=== PATIENT | male | born 1980 | race Caucasian/White ===

== ENCOUNTER 2018-12-17 10:36 | Inpatient (IN) ==
[2018-12-17] MEDS: SODIUM CHLORIDE 0.9% 1000ML 1,000 ML IV SCH ×2 (11:30→20:38)
[2018-12-17 11:48] LABS: Albumin Level 3.7 gm/dl (3.4-5.0); BUN Creatinine Ratio 10.1 (10-20); Bilirubin Direct 0.1 mg/dl (0-0.2); Calcium 9.5 mg/dl (8.5-10.1); Est GFR (African American) 104.1; Est GFR (Non-African American) 89.8; Potassium 4.4 mmol/L (3.5-5.1)
[2018-12-17 11:51] LABS: Bilirubin,Total 0.6 mg/dl (0.2-1); Total Protein 7.4 gm/dl (6.4-8.2)
[2018-12-17 11:55] LABS: Basophils # (auto) 0.04 K/uL (0-0.2); Basophils % (auto) 0.5 %; Eosinophils # (auto) 0.12 K/uL (0-0.5); Eosinophils % (auto) 1.6 %; Hematocrit (blood only) 27.7 % (42-52); Hemoglobin 7.6 g/dL (14.0-18.0); Hypochromasia Present; Immature Granulocytes # (auto) 0.02 K/uL (0.00-0.02); Immature Granulocytes % (auto) 0.3 %; Lymphocytes # (auto) 1.68 K/uL (1.2-3.4); Lymphocytes % (auto) 22.7 %; Mean Corpuscular Hemoglobin 19.1 pg (25-34); Mean Corpuscular Hgb Conc 27.4 g/dL (32-36); Mean Corpuscular Volume 69.6 fL (80-100); Mean Platelet Volume 9.1 fL (7.4-10.4); Microcytosis Present; Monocytes # (auto) 0.64 K/uL (0.11-0.59); Monocytes % (auto) 8.6 %; Neutrophils % (auto) 66.3 %; Platelet Count 323 K/uL (130-400); Polychromasia 1+; RDW Coefficient of Variation 17.2 % (11.5-14.5); RDW Standard Deviation 44.3 fL (36.4-46.3); Red Blood Count 3.98 M/uL (4.7-6.1)
[2018-12-17 12:45] LABS: Partial Thromboplastin Ratio 0.8; Partial Thromboplastin Time 21.4 Seconds (21.0-31.0); Prothrombin Time 10.5 Seconds (9.0-12.0)
[2018-12-17] MEDS ORDERED: SODIUM CHLORIDE 0.9% 250 ML IV PRN (12:46)
[2018-12-17] MEDS ORDERED: RAPID SEQUENCE INDUCTION BAG ONE (13:05)
[2018-12-17] MEDS ORDERED: ACETAMINOPHEN 1,000 MG/100 ML VIAL IV STA (13:58)
[2018-12-17] MEDS ORDERED: PANTOprazole 80 MG in DEXTROSE 5% 100 ML IV ONE (14:00)
[2018-12-17] MEDS ORDERED: PANTOprazole 40 MG in DEXTROSE 5% 100 ML IV SCH (14:15)
--- NOTE | 2018-12-17 14:15 | History & Physical Report ---
Date of Service December 17, 2018 Assessment & Plan (1) GI bleed: This is a 38-year-old male with a PMH of hypertension, hyperlipidemia, mood disorder and recent kidney stone who presents with symptomatic anemia and was found to have GI bleed. -Hgb of 7.6 with MCV 69.6, + Hemoccult positive -No abdominal pain, melena or hematochezia -Consented and type and cross for 2 units PRBCs with first unit infusing now -Concern for ulcer in setting of frequent Naproxen use (4-5x/week). No history of GI bleed -Keeping NPO for now, Protonix bolus and drip, monitor H&H -Discussed with GI service who evaluated patient and scheduled for EGD this afternoon (2) Symptomatic anemia: Has been progressively symptomatic for the past 6 months, endorsing lightheadedness, visual changes, SOB and chest pain with exertion -Hgb of 7.6 today with microcytic MCV of 69.6. Retic % of 2.11. Serum iron, ferritin low. Elevated TIBC -Prescribed ferrous sulfate 2 days ago but has not yet started -Consented and type and cross for 2 units PRBCs with first unit infusing now -H&H Q6H (3) History of kidney stones: Recently diagnosed with obstructing 2mm R renal stone at [facility] in [place] -Started on Flomax -Passed stone this morning, no longer experiencing pain (4) Hypertension: Mildly elevated at 160/88. Continue losartan (5) Hyperlipidemia: Continue statin (6) Mood disorder: Continue citalopram DVT Ppx: Pharmacologic VTE contraindicated 2/2 GI bleed. Mechanical ppx not indicated 2/2 age. Early ambulation Code status: FULL PCP: Kevin Dispo: Plan to return home once medically stable. Patient seen in collaboration with Dr. Hunt. Please see addendum. History of Present Illness Chief Complaint: Lightheadedness, abnormal outpatient lab work Primary Care Provider: Adolfo Brown MD This is a 38-year-old male with a PMH of hypertension, hyperlipidemia, mood disorder and recent kidney stone who presents with abnormal lab work from PCPs office. Was evaluated at [facility] in [place] 2 days ago for right flank pain and found to have 2 mm renal calculus. Noted at the time to have a hemoglobin of 8 on the lab work as well as a low MCV. Was discharged on Flomax and ferrous sulfate for microcytic anemia and set up for PCP follow-up the following day. Clinic lab work performed yesterday showed hemoglobin of 7.1 with low ferritin and serum iron as well as high TIBC and reticulocyte % of 2.11. Was sent to ED for further evaluation. Patient endorses progressively worsening symptomatic anemia for the past 6 months. CBC from February 2018 with hemoglobin of 13.5 and normocytic MCV. Has become lightheaded with blurry vision with any type of exertion. Also endorses dyspnea when moving around. 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 History of normal stress echo in September 2018. has noted that he is looked paler for the past few weeks. No fever, chills, headache, night sweats, unintentional weight loss, cough, palpitations, nausea, abdominal pain, dysuria, diarrhea or constipation. Denies any hematemesis, melena or hematochezia. Bowel movements normal color and caliber. Denies tobacco use. Uses naproxen 4-5x/week for knee pain. Of note, patient passed kidney stone this morning. No longer experiencing flank pain. Denies hematuria. In ED, patient found to be afebrile and hemodynamically stable. No leukocytosis. Hemoglobin 7.6. MCV 69.6. Hemoccult positive. Consented and type and cross for 2 units PRBCs with first unit infusing now. Allergies Allergy/AdvReac Type Severity Reaction Status Date / Time epinephrine AdvReac Severe vomiting, Verified 12/17/18 15:03 dizzy, high heart rate lidocaine AdvReac Severe vomiting, Verified 12/17/18 15:03 dizzy, high heart rate Home Medications Home Medications Medication Instructions Recorded Confirmed Type citalopram 40 mg PO HS 12/17/18 12/17/18 History ferrous sulfate 325 mg PO DAILY 12/17/18 12/17/18 History losartan 25 mg PO HS 12/17/18 12/17/18 History rosuvastatin 20 mg PO HS 12/17/18 12/17/18 History tamsulosin 0.4 mg PO QAM 12/17/18 12/17/18 History tamsulosin [Flomax] 0.4 mg PO DAILY 12/17/18 12/17/18 History tramadol 50 mg PO QAM PRN 12/17/18 12/17/18 History Past Med/Surg History Medical History Mood disorder (Chronic) Hyperlipidemia (Chronic) Hypertension (Chronic) History of kidney stones (Chronic) Anemia Surgical History Hx of wisdom tooth extraction (Chronic) Family History Other Diabetes Heart disease Social History Preferred Language: Korean Communication Ability: Effective Beliefs That Will Affect Care: None Current Living Situation: Spouse and Family Other Information That Helps Us Care for You: No Feels Safe at Home: Yes Safety Concerns: Feels Safe At This Time Smoking Status: Never smoker Hx Alcohol Use: Yes Alcohol type: beer Alcohol Intake Frequency: Rarely Hx Substance Use: No Review of Systems Review of Systems: At least ten systems reviewed and negative except as noted in the HPI. Physical Exam Physical Exam: General Appearance: WD/WN, vitals as above, NAD, sitting up in bed, conversing easily, + pale Head: normocephalic, atraumatic Eyes: normal inspection, PERRL, conjunctivae normal, anicteric sclerae ENT: external ear and nose normal, oropharynx normal Neck: trachea midline, no thyromegaly normal visual inspection Respiratory: lungs clear to auscultation, no wheeze, rales, rhonchi. Normal insp/exp effort, no accessory muscle use Cardiovascular: regular rate, rhythm, no murmur, normal peripheral pulses. Vessels: no JVD or carotid bruit Chest: normal inspection of chest Abdomen/GI: normal bowel sounds, soft, nontender, no hepatosplenomegaly Extremities/Musculoskelatal: no cyanosis or clubbing, extremities motor strength 5/5 Neurologic: PERRL, EOMI, accommodation nl, no face palsy, no dysarthria CN's II-XI intact bilaterally and moves all extremities Psychiatric: A+Ox3, euthymic affect Skin: no rashes, pale, warm/dry Results & Data Vital Signs (Past 12 Hours) Vital Signs Temp Pulse Resp BP Pulse Ox 12/17/18 13:35 37.1 C 73 14 160/88 H 97 12/17/18 11:30 79 16 12/17/18 11:18 80 17 12/17/18 10:39 36.8 C 74 20 130/81 100 Laboratory Results Short CBC 12/17/18 Range/Units 11:23 WBC 7.40 (4.8-10.8) K/uL Hgb 7.6 L (14.0-18.0) g/dL Hct 27.7 L (42-52) % Plt Count 323 (130-400) K/uL BMP 12/17/18 11:23 Sodium 140 Potassium 4.4 Chloride 106 Carbon Dioxide 29 BUN 11 Creatinine 1.06 Glucose 88 Calcium 9.5 Liver Function 12/17/18 Range/Units 11:23 Total Bilirubin 0.6 (0.2-1) mg/dl Direct Bilirubin 0.1 (0-0.2) mg/dl AST 20 (15-37) U/L ALT 25 (12-78) U/L Alkaline Phosphatase 70 (45-117) U/L Albumin 3.7 (3.4-5.0) gm/dl ECG Rhythm: normal sinus Supervising Physician Co-Signing Physician Notes HISTORY: Record reviewed; care coordinated with Sabrina Mckeon PA-C. Patient interviewed and examined in ED around 14:40. Please refer to her documentation for patient's history. Briefly, 38 yo male with severe microcytic anemia and heme + stools. Takes naproxen for musculoskeletal pain. EXAM: General- no distress Lungs- clear to auscultation; no respiratory distress Cardiovascular- RRR; I/ sys murmur at base; no gallop; no JVD; no pretibial edema Abdomen- + bowel sounds, soft, nontender Extremities- no cyanosis; no calf tenderness Neuro- alert, oriented Skin- warm & dry DATA: Hgb 7.6, MCV 70. Other lab studies as noted. ASSESSMENT AND PLAN: Microcytic anemia, heme + stool. Suspect UGI bleed secondary to NSAID. GI consulted. Stared on PPI. Packed RBC's ordered. Monitor H/H. Please refer to RASHI Mckeon's documentation for discussion of other issues.
--- NOTE | 2018-12-17 14:38 | Gastrointestinal Consultation ---
Date of Consultation December 17, 2018 Assessment & Plan (1) Symptomatic anemia: 1. EGD today. 2. Colonoscopy moved up to ThuDec 22 at . 3. Keep NPO. 4. IV fluids. 5. Further recommendations to follow EGD. Present on Admission?: Yes Supervising Physician Co-Signing Physician Notes I saw and evaluated the patient. He presented to the emergency room upon recommendation from his primary care provider due to worsening anemia. The patient had a previously CBC done last year which was in within normal limits. He presented to an emergency room several days ago for flank discomfort and was found to have evidence of nephrolithiasis. In addition he was found to have a symptomatic anemia and referred to his primary care provider. The patient denies having any hematochezia or dark sticky stool or hematemesis. There is no family history of stomach cancer, colon cancer, esophageal cancer or inflammatory bowel disease Physical examination No obvious distress, pallor noted Abdomen soft Impression: Patient with a low MCV anemia and what appears to be iron deficiency. We are planning to do upper endoscopy today to evaluate for evidence of peptic ulcer disease. We discussed the risks and benefits to include bleeding, infection, perforation and need for follow-up exams. History of Present Illness Reason for Consultation: Symptomatic anemia, occult positive stool Requesting Physician: Sabrina Mckeon PA-C Attending Physician: Dr. Londono History of Present Illness Mr. Cristóbal Tejeda is a 38 yr old male pt of Dr. Brown with a hx of recent kidney stone, otherwise unremarkable PMH who was seen at [facility] ED on 12/15. CT there with a 1-2 mm kidney stone which he believes that he passed. However, anemia was found on labs there: Hb 7.6. During the ED f/u visit with yesterday, OP EGD/colonoscopy was arranged for 12/30. Labs were drawn and Hb was found to be 7.1. Today, Dr. Yen's staff called him and directed him to present to the ED. A review of records shows that the pt's Hb was 12 in February and MCV was normal then. He reports feeling exertional SOB for the past 6 months, though interestingly, the symptoms have been stable, not worsening. He has also had some lightheadedness but no fainting. No CP or pressure. No palpitations. He does take two Alleve about 4 days/week for knee pain. He has not had any gross GI bleeding though occult stool in the ED was positive. Labs here in the [facility] ED are Hb 7.6, MCV 69, BUN 11, Cr 1.06, K 4.4, INR 1.0. Allergies Allergy/AdvReac Type Severity Reaction Status Date / Time epinephrine AdvReac Severe vomiting, Verified 12/17/18 15:03 dizzy, high heart rate lidocaine AdvReac Severe vomiting, Verified 12/17/18 15:03 dizzy, high heart rate Home Medications Home Medications Medication Instructions Recorded Confirmed Type citalopram 40 mg PO HS 12/17/18 12/17/18 History ferrous sulfate 325 mg PO DAILY 12/17/18 12/17/18 History losartan 25 mg PO HS 12/17/18 12/17/18 History rosuvastatin 20 mg PO HS 12/17/18 12/17/18 History tamsulosin 0.4 mg PO QAM 12/17/18 12/17/18 History tamsulosin [Flomax] 0.4 mg PO DAILY 12/17/18 12/17/18 History tramadol 50 mg PO QAM PRN 12/17/18 12/17/18 History Patient History Medical History Mood disorder (Chronic) Hyperlipidemia (Chronic) Hypertension (Chronic) History of kidney stones (Chronic) Anemia Surgical History Hx of wisdom tooth extraction (Chronic) Family History Other Diabetes Heart disease Social History Preferred Language: Syriac Communication Ability: Effective Beliefs That Will Affect Care: None Current Living Situation: Spouse and Family Other Information That Helps Us Care for You: No Feels Safe at Home: Yes Safety Concerns: Feels Safe At This Time Smoking Status: Never smoker Hx Alcohol Use: Yes Alcohol type: beer Alcohol Intake Frequency: Rarely Hx Substance Use: No Review of Systems Review of Systems: ROS: Gen: + "feeling crappy" Some general weakness, no fevers, weight loss Eyes: No eye redness, or pain, no recent vision changes Resp: +exertional SOB, no cough, no sinus congestion or nasal discharge. Cardio: No palpitations/irregular beats, no chest pain, no chest pressure GI: No abdominal pain, Had one episode of vomiting related to kidney stone 2 days ago. : Denies pain on urination Skin: No jaundice, itching or new rashes Physical Exam Constitutional: WD/WN, vitals as above Eyes: PERRL, conjunctivae normal, anicteric sclerae ENMT: external ear and nose normal, oropharynx normal Neck: trachea midline, no thyromegaly Respiratory: normal respiratory effort, lungs clear to auscultation Cardiovascular: RRR, no murmur, no edema Gastrointestinal (Abdomen): normal bowel sounds, soft, nontender, no hep atosplenomegaly Musculoskeletal: no cyanosis or clubbing, extremities motor strength 5/5 Skin: no rashes, warm and dry Neurologic: PERRL, EOMI, accommodation nl, no face palsy, no dysarthria Psychiatric: A+Ox3, euthymic affect Lymphatic: no cervical or axillary lymphadenopathy Results & Data Vital Signs (Past 12 Hours) Vital Signs Temp Pulse Resp BP Pulse Ox 12/17/18 14:30 65 15 148/89 H 97 12/17/18 14:25 74 16 143/85 H 100 12/17/18 14:20 67 17 158/96 H 97 12/17/18 14:15 67 17 155/74 H 98 12/17/18 14:10 67 17 155/92 H 98 12/17/18 14:05 68 23 158/80 H 98 12/17/18 14:00 69 15 154/90 H 96 12/17/18 13:55 71 18 142/83 H 99 12/17/18 13:50 68 16 151/89 H 96 12/17/18 13:45 37 C 73 14 159/95 H 96 12/17/18 13:40 67 14 154/90 H 97 12/17/18 13:35 37.1 C 73 15 160/88 H 99 12/17/18 13:30 78 16 155/99 H 99 12/17/18 13:25 68 12 150/93 H 12/17/18 13:24 72 21 134/91 12/17/18 13:04 67 14 131/83 12/17/18 13:01 93 H 24 12/17/18 12:30 76 17 12/17/18 12:00 68 17 12/17/18 11:30 79 16 12/17/18 11:18 80 17 12/17/18 10:39 36.8 C 74 20 130/81 100 Laboratory Results Hb 7.6, MVC 69, BUN 11, Cr 1.06, K 4.4, iron 11, INR 1.0, transferrin sat 2%, ferritin 4.8. LFTs normal.
[2018-12-17] MEDS ORDERED: LIDOCAINE HCL 2% 2 ML VIAL/AMP(20MG/ML) INFIL ONE (14:56)
[2018-12-17] MEDS ORDERED: PROPOFOL IV EMULSION 10 MG/ML 20 ML VIAL IV ONE (14:56)
--- NOTE | 2018-12-17 15:14 | Anesthesiology Consultation ---
Date of Service December 17, 2018 Assessment & Plan (1) Encounter for pre-operative examination: Chart Review Chart Review: Acceptable Risk for Surgery History Surgery Operation Date: 12/17/18 09:30 Proposed Procedures p Esophagogastroduodenoscopy Dr Emile Baptiste Height/Weight Height: 5 ft 8 in Weight: 97.3 kg Allergies Allergy/AdvReac Type Severity Reaction Status Date / Time epinephrine AdvReac Severe vomiting, Verified 12/17/18 15:03 dizzy, high heart rate lidocaine AdvReac Severe vomiting, Verified 12/17/18 15:03 dizzy, high heart rate Medications Home Medications Medication Instructions Recorded Confirmed Last Taken citalopram 40 mg PO HS 12/17/18 12/17/18 12/14/18 ferrous sulfate 325 mg PO DAILY 12/17/18 12/17/18 Unknown losartan 25 mg PO HS 12/17/18 12/17/18 12/14/18 rosuvastatin 20 mg PO HS 12/17/18 12/17/18 12/14/18 tamsulosin 0.4 mg PO QAM 12/17/18 12/17/18 12/17/18 tamsulosin [Flomax] 0.4 mg PO DAILY 12/17/18 12/17/18 Unknown tramadol 50 mg PO QAM PRN 12/17/18 12/17/18 12/17/18 09:00 Active Medications Generic Name Dose Route Start Last Admin Trade Name Freq PRN Reason Stop Dose Admin Sodium Chloride 1,000 mls @ 125 mls/hr 12/17/18 11:00 12/17/18 11:30 Nss 1000ml IV 01/16/19 10:59 125 mls/hr .Q8H KAYLAH Administration Past Medical History Medical History Mood disorder (Chronic) Hyperlipidemia (Chronic) Hypertension (Chronic) History of kidney stones (Chronic) Anemia Exercise / Class Metabolic Activity II 4-5 Yardwork/Stairs/Walk up hill Past Family History Family History Other Diabetes Heart disease Past Surgical History Surgical History Hx of wisdom tooth extraction (Chronic) Social History Smoking Status: Never smoker Hx Alcohol Use: Yes Alcohol type: beer alcohol intake frequency: a few times a week Hx Substance Use: No Physical Exam Vital Signs Last Vital Signs Temp 37 C 12/17/18 13:45 Pulse 75 12/17/18 14:35 Resp 15 12/17/18 14:35 BP 158/99 H 12/17/18 14:35 Pulse Ox 97 12/17/18 14:30 Testing Laboratory Results 12/17/18 11:23 12/17/18 11:23 PT 10.5 Seconds (9.0-12.0) 12/17/18 12:26 INR 1.0 (0.9-1.1) 12/17/18 12:26 APTT 21.4 Seconds (21.0-31.0) 12/17/18 12:26 Blood Type O Negative 12/17/18 11:30 Antibody Screen NEGATIVE 12/17/18 11:30 Electrocardiogram Date: 12/17/18 Findings: + NSR @ (72)
--- NOTE | 2018-12-17 15:19 | History & Physical Bridge Note ---
Date of Service December 17, 2018 History & Physical Bridge Note I have examined the patient, reviewed the History & Physical and in the interval since the performance of the History & Physical I have noted the following changes of clinical significance: no changes noted
--- NOTE | 2018-12-17 15:56 | GI REPORT ---
Patient Name: Cristóbal Tejeda Procedure Date: 12/17/2018 3:28 PM Date of : 1980 Admit Type: Emergency Department Age: 38 Gender: Male Attending MD: Evelyne Baptiste DO Procedure: Upper GI endoscopy Providers: Evelyne Baptiste DO Referring MD: Heriberto Interiano . M.d. Indications: Iron deficiency anemia Medicines: Monitored Anesthesia Care Complications: No immediate complications. Estimated blood loss: Minimal. Estimated Blood Loss: Estimated blood loss was minimal. Procedure: Pre-Anesthesia Assessment: - Prior to the procedure, a History and Physical was performed, and patient medications, allergies and sensitivities were reviewed. The patient's tolerance of previous anesthesia was reviewed. - The risks and benefits of the procedure and the sedation options and risks were discussed with the patient. All questions were answered and informed consent was obtained. - Patient identification and proposed procedure were verified prior to the procedure by the physician, the nurse and the panel beater. The procedure was verified in the procedure room. - Pre-procedure physical examination revealed no contraindications to sedation. - ASA Grade Assessment: III - A patient with severe systemic disease. - After reviewing the risks and benefits, the patient was deemed in satisfactory condition to undergo the procedure. - The anesthesia plan was to use monitored anesthesia care (MAC). - Immediately prior to administration of medications, the patient was re-assessed for adequacy to receive sedatives. - The heart rate, respiratory rate, oxygen saturations, blood pressure, adequacy of pulmonary ventilation, and response to care were monitored throughout the procedure. - The physical status of the patient was re-assessed after the procedure. After obtaining informed consent, the endoscope was passed under direct vision. Throughout the procedure, the patient's blood pressure, pulse, and oxygen saturations were monitored continuously. The Endoscope was introduced through the mouth, and advanced to the third part of duodenum. The upper GI endoscopy was accomplished without difficulty. The patient tolerated the procedure well. Findings: The upper third of the esophagus and middle third of the esophagus were normal. The Z-line was irregular and was found 34 cm from the incisors. Biopsies were taken with a cold forceps for histology. The pathology specimen was placed into Bottle C. Estimated blood loss was minimal. A large hiatal hernia was found. The proximal extent of the gastric folds (end of tubular esophagus) was 34 cm from the incisors. The hiatal narrowing was 40 cm from the incisors. The Z-line was 34 cm from the incisors. Several marina's erosions were noted in the hiatal hernial sac. Few non-obstructing non-bleeding superficial gastric ulcers of mild severity with no stigmata of bleeding were found in the gastric body and in the gastric antrum. The largest lesion was 4 mm in largest dimension. Biopsies were taken with a cold forceps for histology. The pathology specimen was placed into Bottle B. Estimated blood loss was minimal. The examined duodenum was normal. Biopsies were taken with a cold forceps for histology. The pathology specimen was placed into Bottle A. Estimated blood loss was minimal. Impression: - Normal upper third of esophagus and middle third of esophagus. - Z-line irregular, 34 cm from the incisors. Biopsied. - Large hiatal hernia with camerons erosions. - Non-obstructing non-bleeding gastric ulcers with no stigmata of bleeding. Biopsied. - Normal examined duodenum. Biopsied. Recommendation: - [facility]. - Await pathology results. - Use Prilosec (omeprazole) 40 mg PO daily. - Repeat upper endoscopy in 3 months for surveillance. - Ferrous sulfate at 325 mg orally BID for 6 weeks. - Follow up with hemoglobin in 2 weeks. - OP colonoscopy scheduled for next week. Evelyne Baptiste D.O. Evelyne Baptiste DO 12/17/2018 3:55:57 PM This report has been signed electronically. Note Initiated On: 12/17/2018 3:28 PM Number of Addenda: 0 I attest to the content of the Intraoperative Record and orders documented therein, exceptions below {[id number]}
[2018-12-17] MEDS ORDERED: PANTOprazole 40 MG TAB PO STA ×2 (16:02→17:40)
--- NOTE | 2018-12-17 16:02 | Communication Note ---
Date of Service: December 17, 2018 Upper endoscopy completed this afternoon. Large hiatal hernia Robinson's erosions Multiple shallow gastric ulcers Recommendations Advance diet as tolerated Omeprazole 40 mg/day Iron supplement twice daily for the next 6 to 8 weeks Outpatient colonoscopy scheduled for next week to ensure he does not have any colonic pathology Please call with any questions or concerns
--- NOTE | 2018-12-17 16:21 | Anesthesiology Progress Note ---
Date of Service December 17, 2018 Anesthesia Post Procedure Vital Signs Vital Signs: Temp Pulse Pulse Resp BP BP Pulse Ox 12/17/18 16:08 67 18 139/82 95 12/17/18 15:53 36.7 C 75 75 20 136/69 136/69 97 12/17/18 15:09 36.7 C 75 20 155/83 H 97 12/17/18 14:35 75 15 158/99 H 12/17/18 14:30 65 15 148/89 H 97 12/17/18 14:25 74 16 143/85 H 100 12/17/18 14:20 67 17 158/96 H 97 12/17/18 14:15 67 17 155/74 H 98 12/17/18 14:10 67 17 155/92 H 98 12/17/18 14:05 68 23 158/80 H 98 12/17/18 14:00 69 15 154/90 H 96 12/17/18 13:55 71 18 142/83 H 99 12/17/18 13:50 68 16 151/89 H 96 12/17/18 13:45 37 C 73 14 159/95 H 96 12/17/18 13:40 67 14 154/90 H 97 12/17/18 13:35 37.1 C 73 15 160/88 H 99 12/17/18 13:30 78 16 155/99 H 99 12/17/18 13:25 68 12 150/93 H 12/17/18 13:24 72 21 134/91 12/17/18 13:04 67 14 131/83 12/17/18 13:01 93 H 24 12/17/18 12:30 76 17 12/17/18 12:00 68 17 12/17/18 11:30 79 16 12/17/18 11:18 80 17 12/17/18 10:39 36.8 C 74 20 130/81 100 Transfer of Care Handoff Completed per policy Notes Mental Status: alert / awake / arousable Patient Amnestic to Procedure: Yes Nausea / Vomiting: adequately controlled Pain: adequately controlled Airway Patency, RR, SpO2: stable & adequate BP & HR: stable & adequate Hydration State: stable & adequate Anesthetic Complications: no major complications apparent
--- NOTE | 2018-12-17 17:13 | Emergency Department Note ---
Entered by Elliot Vergara acting as a scribe for Heriberto Mccain History of Present Illness General Chief complaint: Referred by Doctor Stated complaint: REFERRED BY DOCTOR Time Seen by Provider: 12/17/18 10:46 Source: patient History of Present Illness Onset (ago): day(s) 2 Location: head Pain Consistency: + other (episode) Maximum Pain Intensity: 2 Quality: + other (low hemoglobin) Associated symptoms: + nausea/vomiting (vomiting from kidney stone medication) and + other (-blood in stool/ruine; -black stool; -abdominal pain); no chest pain The patient is a 38 year old male who presents to the Emergency Room with complaints of an episode of low hemoglobin level that he became aware of 2 days ago. The patient states he was in the ED in [place] 2 days ago for right flank pain. The patient states the result of the visit showed he had a kidney stone, but the patient reports his hemoglobin level was found to be 8. The patient reports that, since his hemoglobin was at 13.5 in January, he was advised to follow up with his PCP to monitor his hemoglobin levels. The patient reports his PCP, Dr. Yen, referred him to the ED today due to his hemoglobin level being at 7.1. The patient denies blood in stool or urine, black stool, chest pain, or abdominal pain. The patient notes he has been getting extremely winded really fast for a long period of time, but he notes he has been monitoring this with his PCP. The patient also notes that when he first tried the medicine he was given for kidney stones, he drank water right afterwards but then ended up vomiting several times. Home Medications Home Medications Medication Instructions Recorded Confirmed Type citalopram 40 mg PO HS 12/17/18 12/17/18 History ferrous sulfate 325 mg PO DAILY 12/17/18 12/17/18 History losartan 25 mg PO HS 12/17/18 12/17/18 History rosuvastatin 20 mg PO HS 12/17/18 12/17/18 History tamsulosin 0.4 mg PO QAM 12/17/18 12/17/18 History tamsulosin [Flomax] 0.4 mg PO DAILY 12/17/18 12/17/18 History tramadol 50 mg PO QAM PRN 12/17/18 12/17/18 History Allergies Allergy/AdvReac Type Severity Reaction Status Date / Time epinephrine AdvReac Severe vomiting, Verified 12/17/18 15:03 dizzy, high heart rate lidocaine AdvReac Severe vomiting, Verified 12/17/18 15:03 dizzy, high heart rate Past Med/Surg History Medical History Mood disorder (Chronic) Hyperlipidemia (Chronic) Hypertension (Chronic) History of kidney stones (Chronic) Anemia Surgical History Hx of wisdom tooth extraction (Chronic) Family History Other Diabetes Heart disease Social History Preferred Language: [place] Communication Ability: Effective Beliefs That Will Affect Care: None Current Living Situation: Spouse and Family Other Information That Helps Us Care for You: No Feels Safe at Home: Yes Safety Concerns: Feels Safe At This Time Smoking Status: Never smoker Hx Alcohol Use: Yes Alcohol type: beer Alcohol Intake Frequency: Rarely Hx Substance Use: No Review of Systems See HPI for pertinent positives & negatives. and A total of 10 systems reviewed and were otherwise negative Physical Exam Vital Signs Vital Signs - 24 hr 12/17/18 10:39 12/17/18 11:18 12/17/18 11:30 Temperature 36.8 C Temperature Source Oral Sepsis Recent Fever Within 48 Hours No Sepsis Action Taken by Nursing No Action Required Pulse Rate 74 80 79 Pulse Rhythm Regular Pulse Strength Normal Respiratory Rate 20 17 16 Respiratory Effort / Characteristics Non-Labored Spontaneous Respiratory Depth Normal Respiratory Pattern Regular Blood Pressure 130/81 Blood Pressure Mean 97 Blood Pressure Position Sitting Pulse Oximetry 100 Oxygen Delivery Method Room Air Room Air 12/17/18 12:00 12/17/18 12:30 12/17/18 13:01 Temperature Temperature Source Sepsis Recent Fever Within 48 Hours Sepsis Action Taken by Nursing Pulse Rate 68 76 93 H Pulse Rhythm Pulse Strength Respiratory Rate 17 17 24 Respiratory Effort / Characteristics Respiratory Depth Respiratory Pattern Blood Pressure Blood Pressure Mean Blood Pressure Position Pulse Oximetry Oxygen Delivery Method 12/17/18 13:04 12/17/18 13:24 12/17/18 13:25 Temperature Temperature Source Sepsis Recent Fever Within 48 Hours Sepsis Action Taken by Nursing Pulse Rate 67 72 68 Pulse Rhythm Pulse Strength Respiratory Rate 14 21 12 Respiratory Effort / Characteristics Respiratory Depth Respiratory Pattern Blood Pressure 131/83 134/91 150/93 H Blood Pressure Mean 99 105 112 Blood Pressure Position Pulse Oximetry Oxygen Delivery Method 12/17/18 13:30 12/17/18 13:35 12/17/18 13:40 Temperature 37.1 C Temperature Source Oral Sepsis Recent Fever Within 48 Hours Sepsis Action Taken by Nursing Pulse Rate 78 73 67 Pulse Rhythm Pulse Strength Respiratory Rate 16 15 14 Respiratory Effort / Characteristics Respiratory Depth Respiratory Pattern Blood Pressure 155/99 H 160/88 H 154/90 H Blood Pressure Mean 117 112 111 Blood Pressure Position Sitting Pulse Oximetry 99 99 97 Oxygen Delivery Method 12/17/18 13:45 12/17/18 13:50 12/17/18 13:55 Temperature 37 C Temperature Source Oral Sepsis Recent Fever Within 48 Hours Sepsis Action Taken by Nursing Pulse Rate 73 68 71 Pulse Rhythm Pulse Strength Respiratory Rate 14 16 18 Respiratory Effort / Characteristics Respiratory Depth Respiratory Pattern Blood Pressure 159/95 H 151/89 H 142/83 H Blood Pressure Mean 116 109 102 Blood Pressure Position Pulse Oximetry 96 96 99 Oxygen Delivery Method 12/17/18 14:00 12/17/18 14:05 12/17/18 14:10 Temperature Temperature Source Sepsis Recent Fever Within 48 Hours Sepsis Action Taken by Nursing Pulse Rate 69 68 67 Pulse Rhythm Pulse Strength Respiratory Rate 15 23 17 Respiratory Effort / Characteristics Respiratory Depth Respiratory Pattern Blood Pressure 154/90 H 158/80 H 155/92 H Blood Pressure Mean 111 106 113 Blood Pressure Position Pulse Oximetry 96 98 98 Oxygen Delivery Method 12/17/18 14:15 12/17/18 14:16 12/17/18 14:20 Temperature Temperature Source Sepsis Recent Fever Within 48 Hours Sepsis Action Taken by Nursing Pulse Rate 67 67 Pulse Rhythm Pulse Strength Respiratory Rate 17 17 Respiratory Effort / Characteristics Respiratory Depth Respiratory Pattern Blood Pressure 155/74 H 158/96 H Blood Pressure Mean 101 116 Blood Pressure Position Pulse Oximetry 98 97 Oxygen Delivery Method Room Air 12/17/18 14:25 12/17/18 14:30 12/17/18 14:35 Temperature Temperature Source Sepsis Recent Fever Within 48 Hours Sepsis Action Taken by Nursing Pulse Rate 74 65 75 Pulse Rhythm Pulse Strength Respiratory Rate 16 15 15 Respiratory Effort / Characteristics Respiratory Depth Respiratory Pattern Blood Pressure 143/85 H 148/89 H 158/99 H Blood Pressure Mean 104 108 118 Blood Pressure Position Pulse Oximetry 100 97 Oxygen Delivery Method GENERAL: He is oriented to person, place, and time. He appears well-developed and well-nourished. He does not appear distressed. HENT: Exam performed. - Head: Normocephalic and atraumatic. - Right Ear: External ear normal. No mastoid tenderness. - Left Ear: External ear normal. No mastoid tenderness. - Mouth/Throat: The oropharynx is clear and moist. No trismus in the jaw. No dental abscesses or uvula swelling. No oropharyngeal exudate or tonsillar abscesses. EYES: Conjunctivae and EOM are normal. Pupils are equal, round, and reactive to light. Right eye exhibits no discharge. Left eye exhibits no discharge. No scleral icterus. NECK: Normal range of motion. Neck supple. No JVD present. No spinous process tenderness present. No carotid bruit present. No rigidity. No tracheal deviation and normal range of motion present. No Brudzinski's sign and no Kernig's sign noted. CV: Normal rate, regular rhythm, normal heart sounds and intact distal pulses. There is no peripheral edema. Palpable radial pulses bue. PULM/CHEST: Effort normal and breath sounds normal. No respiratory distress. No stridor. He has no wheezes. He has no rales. - Chest Wall: He exhibits no tenderness. ABD: The abdomen is soft. Bowel sounds are normal. He has no distension. No mass is present. There is no tenderness. There is no rebound, no guarding, no Tejada's sign and no tenderness at McBurney's point. Rovsig negative. MUSC/SKEL: Normal range of motion. There is no peripheral edema, tenderness or deformity. LYMPH: No cervical adenopathy. NEURO: He is alert and oriented to person, place, and time. He has normal strength. No cranial nerve deficit or sensory deficit. Coordination and gait normal. GCS eye subscore is 4. GCS verbal subscore is 5. GCS motor subscore is 6. Cerebellar tests wnl. SKIN: Skin is warm, dry, and pale. He is not diaphoretic. PSYCH: He has a normal mood and affect. Behavior is normal. Judgment and thought content normal. Course 1047: Past medical records reviewed. The patient was evaluated in room C5. A complete history and physical exam was performed. 1302: Vital signs stable. Labs show hemoglobin 7.6. Rectal exam shows Hemoccult positive. Patient will be transfused 2 units of packed red blood cells and be started on Protonix drip. I reviewed the patient's case with Dr. Carrillo-Hospitalist [facility]. Dr. Carrillo will evaluate the patient for further management. Consultations Consultation #1: I reviewed the patient's case with Dr. Carrillo-Hospitalist [facility]. Dr. Carrillo will evaluate the patient for further management. Time: 13:02 Administered Medications Sodium Chloride (Nss 1000ml) 1,000 mls @ 125 mls/hr IV .Q8H KAYLAH Stop: 01/16/19 10:59 Last Admin: 12/17/18 11:30 Dose: 125 mls/hr Documented by: [id number] Pantoprazole Sodium 40 mg/ (Dextrose) 100 mls @ 20 mls/hr IV Q5H KAYLAH Stop: 01/16/19 14:14 Last Admin: 12/17/18 17:07 Dose: 20 mls/hr Documented by: [id number] Pantoprazole Sodium (Protonix) 40 mg PO NOW STA Stop: 12/17/18 16:03 Last Admin: 12/17/18 17:05 Dose: Not Given Documented by: [id number] Discontinued Medications Pantoprazole Sodium 80 mg/ (Dextrose) 120 mls @ 480 mls/hr IV NOW ONE Stop: 12/17/18 14:14 Last Admin: 12/17/18 17:07 Dose: 480 mls/hr Documented by: [id number] Acetaminophen (Ofirmev) 1,000 mg in 100 mls @ 400 mls/hr IV NOW STA Stop: 12/17/18 14:12 Last Admin: 12/17/18 17:04 Dose: 400 mls/hr Documented by: [id number] Lidocaine HCl (Xylocaine 2%) Confirm Administered Dose 2 ml INFIL .STK-MED ONE Stop: 12/17/18 14:57 Last Admin: 12/17/18 17:05 Dose: Not Given Documented by: [id number] Miscellaneous () Confirm Administered Dose 1 ea .ROUTE .STK-MED ONE Stop: 12/17/18 13:06 Last Admin: 12/17/18 13:14 Dose: Not Given Documented by: [id number] Propofol (Diprivan) Confirm Administered Dose 200 mg IV .STK-MED ONE Stop: 12/17/18 14:57 Last Admin: 12/17/18 17:04 Dose: Not Given Documented by: [id number] Medical Decision Making Medical Records Attestation: I reviewed the patient's medical records. Home Medications Current Medication List: was personally reviewed by me Laboratory Data Attestation: I reviewed the patient's lab results. Result diagrams: 12/17/18 11:23 12/17/18 11:23 Lab Results 12/17/18 12/17/18 12/17/18 Range/Units 11:23 11:23 11:23 WBC 7.40 (4.8-10.8) K/uL RBC 3.98 L (4.7-6.1) M/uL Hgb 7.6 L (14.0-18.0) g/dL Hct 27.7 L (42-52) % MCV 69.6 L (80-100) fL MCH 19.1 L (25-34) pg MCHC 27.4 L (32-36) g/dL RDW Std Deviation 44.3 (36.4-46.3) fL RDW Coeff of Fátima 17.2 H (11.5-14.5) % Plt Count 323 (130-400) K/uL MPV 9.1 (7.4-10.4) fL Immature Gran % (Auto) 0.3 % Neut % (Auto) 66.3 % Lymph % (Auto) 22.7 % [place] % (Auto) 8.6 % Eos % (Auto) 1.6 % Baso % (Auto) 0.5 % Immature Gran # (Auto) 0.02 (0.00-0.02) K/uL Neut # (Auto) 4.90 (1.4-6.5) K/uL Lymph # (Auto) 1.68 (1.2-3.4) K/uL [place] # (Auto) 0.64 H (0.11-0.59) K/uL Eos # (Auto) 0.12 (0-0.5) K/uL Baso # (Auto) 0.04 (0-0.2) K/uL Polychromasia 1+ Hypochromasia Present Microcytosis Present PT Cancelled INR Cancelled APTT Cancelled PTT Ratio Cancelled Sodium 140 (136-145) mmol/L Potassium 4.4 (3.5-5.1) mmol/L Chloride 106 (98-107) mmol/L Carbon Dioxide 29 (21-32) mmol/L Anion Gap 5.0 (3-11) BUN 11 (7-18) mg/dl Creatinine 1.06 (0.6-1.4) mg/dl Est Cr Clr Drug Dosing 109.0 ml/min Est GFR ( Amer) 104.1 Est GFR (Non-Af Amer) 89.8 BUN/Creatinine Ratio 10.1 (10-20) Glucose 88 (70-99) mg/dl Calcium 9.5 (8.5-10.1) mg/dl Total Bilirubin 0.6 (0.2-1) mg/dl Direct Bilirubin 0.1 (0-0.2) mg/dl AST 20 (15-37) U/L ALT 25 (12-78) U/L Alkaline Phosphatase 70 (45-117) U/L Total Protein 7.4 (6.4-8.2) gm/dl Albumin 3.7 (3.4-5.0) gm/dl Lipase 150 (73-393) U/L Blood Type Blood Type Recheck Antibody Screen Crossmatch 12/17/18 12/17/18 12/17/18 Range/Units 11:30 12:26 12:26 WBC (4.8-10.8) K/uL RBC (4.7-6.1) M/uL Hgb (14.0-18.0) g/dL Hct (42-52) % MCV (80-100) fL MCH (25-34) pg MCHC (32-36) g/dL RDW Std Deviation (36.4-46.3) fL RDW Coeff of Fátima (11.5-14.5) % Plt Count (130-400) K/uL MPV (7.4-10.4) fL Immature Gran % (Auto) % Neut % (Auto) % Lymph % (Auto) % [place] % (Auto) % Eos % (Auto) % Baso % (Auto) % Immature Gran # (Auto) (0.00-0.02) K/uL Neut # (Auto) (1.4-6.5) K/uL Lymph # (Auto) (1.2-3.4) K/uL [place] # (Auto) (0.11-0.59) K/uL Eos # (Auto) (0-0.5) K/uL Baso # (Auto) (0-0.2) K/uL Polychromasia Hypochromasia Microcytosis PT 10.5 INR 1.0 APTT 21.4 PTT Ratio 0.8 Sodium (136-145) mmol/L Potassium (3.5-5.1) mmol/L Chloride (98-107) mmol/L Carbon Dioxide (21-32) mmol/L Anion Gap (3-11) BUN (7-18) mg/dl Creatinine (0.6-1.4) mg/dl Est Cr Clr Drug Dosing ml/min Est GFR ( Amer) Est GFR (Non-Af Amer) BUN/Creatinine Ratio (10-20) Glucose (70-99) mg/dl Calcium (8.5-10.1) mg/dl Total Bilirubin (0.2-1) mg/dl Direct Bilirubin (0-0.2) mg/dl AST (15-37) U/L ALT (12-78) U/L Alkaline Phosphatase (45-117) U/L Total Protein (6.4-8.2) gm/dl Albumin (3.4-5.0) gm/dl Lipase (73-393) U/L Blood Type O Negative Blood Type Recheck O Negative Antibody Screen NEGATIVE Crossmatch See Detail ECG Data Attestation: I personally reviewed and interpreted this ECG as follows: Indication: other (arrhythmia ) Rate (beats per minute): 72 Findings: + other (normal VT/QTC/QRS) and + T-wave inversion (lead 3); no ST de pression and no ST elevation Blood Pressure Blood Pressure Findings: Elevated blood pressure Blood Pressure Disposition: elevated BP felt to be situational MDM Narrative Vital signs stable. Labs show hemoglobin 7.6. Rectal exam shows Hemoccult positive. Patient will be transfused 2 units of packed red blood cells and be started on Protonix drip. I reviewed the patient's case with Dr. Carrillo- Hospitalist [facility]. Dr. Carrillo will evaluate the patient for further management. Impression & Plan Anemia, Acute GI bleeding Critical Care Time Critical Care Time: Yes Total Critical Care Time: 63 I have personally spent 63 minutes of critical care time in the direct management of this patient. This includes bedside care, interpretation of diagnostic studies, and testing, discussion with consultants, patient, and family members, and other required patient management activities. This 63 minutes is in excess of all separately billable procedures. Discharge Plan Visit Data Chief Complaint: Referred by Doctor Stated Complaint: REFERRED BY DOCTOR ED Provider: Heriberto Mccain Discharge Problem: Anemia, Acute GI bleeding Patient Disposition: Still a Patient Discharge Instructions Interventions: ED Discharge Assessment Last Done: 12/17/18 15:06 Discharge Problem: Anemia Qualifiers: Anemia type: unspecified type Qualified Code(s): D64.9 - Anemia, unspecified The scribe's documentation has been prepared under my direction and personally reviewed by me in its entirety. I confirm that the note above accurately reflects all work, treatment, procedures, and medical decision making performed by me.
[2018-12-17] MEDS ORDERED: TRAMADOL HCL 50 MG TABLET PO PRN (17:40)
[2018-12-17] MEDS: CITALOPRAM 40 MG TAB PO SCH (20:38)
[2018-12-17] MEDS: LOSARTAN POTASSIUM 25 MG TAB PO SCH (20:38)
[2018-12-17] MEDS: ROSUVASTATIN CALCIUM 20 MG TAB PO SCH (20:39)
[2018-12-17] MEDS: FERROUS SULFATE 325 MG TAB PO SCH (20:39)
[2018-12-17 23:22] LABS: Hematocrit (blood only) 29.8 % (42-52); Hemoglobin 8.7 g/dL (14.0-18.0)
[2018-12-18] MEDS: SODIUM CHLORIDE 0.9% 1000ML 1,000 ML IV SCH ×2 (04:44→11:30)
[2018-12-18 06:11] LABS: Hemoglobin 8.8 g/dL (14.0-18.0); Mean Corpuscular Hemoglobin 20.7 pg (25-34); Mean Corpuscular Hgb Conc 29.3 g/dL (32-36); Mean Corpuscular Volume 70.4 fL (80-100); Mean Platelet Volume 9.4 fL (7.4-10.4); Platelet Count 284 K/uL (130-400); RDW Coefficient of Variation 17.6 % (11.5-14.5); RDW Standard Deviation 45.3 fL (36.4-46.3); Red Blood Count 4.26 M/uL (4.7-6.1)
[2018-12-18 06:48] LABS: BUN Creatinine Ratio 10.1 (10-20); Calcium 8.8 mg/dl (8.5-10.1); Creatinine Clr Calc Pharmacy 126.9 ml/min; Est GFR (African American) 125.2; Potassium 4.1 mmol/L (3.5-5.1)
[2018-12-18] MEDS: TAMSULOSIN HCL 0.4 MG CAP PO SCH (08:19)
[2018-12-18] MEDS: FERROUS SULFATE 325 MG TAB PO SCH ×2 (08:19→21:36)
[2018-12-18] MEDS: PANTOprazole 40 MG TAB PO SCH (08:19)
[2018-12-18] MEDS ORDERED: BUTALBITAL/ACETAMIN/CAFFEINE TAB PO ONE (12:45)
--- NOTE | 2018-12-18 13:16 | Hospitalist Progress Note ---
Date of Service December 18, 2018 Assessment & Plan (1) GI bleed: This is a 38-year-old male with a PMH of hypertension, hyperlipidemia, mood disorder and recent kidney stone who presents with symptomatic anemia and was found to have GI bleed. -presented with Hgb of 7.6 with MCV 69.6, + Hemoccult positive -No abdominal pain, melena or hematochezia reports of NSAID use : frequent Naproxen use (4-5x/week). No prior history of GI bleed -s/p 2 units PRBCs transfusion - appreciate input form [facility] Status post EGD:yesterday 12/17/18 Impression: Normal upper third of the esophagus and middle third of the esophagus. Large hiatal hernia with Robinson's erosions Nonobstructing nonbleeding gastric ulcer with no stigmata of bleeding GI recommendation: Prilosec (omeprazole) 40 mg daily Repeat endoscopy in 3 months for surveillance. Ferrous sulfate at 325 mg twice daily for 6 weeks Repeat lab with H&H in 2 weeks Outpatient colonoscopy scheduled next week on 12/22/2018 Patient should avoid NSAIDs (2) Symptomatic anemia: Has been progressively symptomatic for the past 6 months, endorsing lightheadedness, visual changes, SOB and chest pain with exertion due to GI bleed( upper ) with evidence of gastric ulcer noted in EGD -presented with Hgb of 7.6 today with microcytic MCV of 69.6. Retic % of 2.11. Serum iron, ferritin low. Elevated TIBC - s/p 2 units of PRBC transfusion Ordered for IV iron/Venofer transfusion EGD finding and GI recommendation as outlined above (3) History of kidney stones: Recently diagnosed with obstructing 2mm R renal stone at [facility] in [place] -Started on Flomax apparent passed the stone denies of any urinary symptom (4) Hypertension: BP stable on Loasartan (5) Hyperlipidemia: Continue statin (6) Mood disorder: Continue citalopram DVT Ppx: Pharmacologic VTE contraindicated 2/2 GI bleed. low risk , pt is encouraged to ambulate PCP: Kevin Dispo: will be discharged home when medically stable Subjective Patient reports of feeling well No evidence of GI bleed, no dark stool, no nausea vomiting Denies of feeling dizzy or lightheadedness Feels tired, but symptom improved from prior No fever or chills Review of Systems Review of Systems: All systems reviewed & are unremarkable except as noted in HPI & below Physical Exam Constitutional: WD/WN, vitals as above no acute distress Eyes: PERRL, conjunctivae normal, anicteric sclerae ENMT: external ear and nose normal, oropharynx normal Neck: trachea midline, no thyromegaly Respiratory: normal respiratory effort, lungs clear to auscultation Cardiovascular: RRR, no murmur, no edema Gastrointestinal (Abdomen): normal bowel sounds, soft, nontender, no hepatosplenomegaly Musculoskeletal: no cyanosis or clubbing, extremities motor strength 5/5 Skin: no rashes, warm and dry Neurologic: PERRL, EOMI, accommodation nl, no face palsy, no dysarthria Psychiatric: A+Ox3, euthymic affect Results & Data Vital Signs (Past 12 Hours) Vital Signs Temp Pulse Resp BP Pulse Ox 12/18/18 11:53 37.1 C 67 18 138/82 96 12/18/18 08:16 36.5 C 80 19 140/83 98 12/18/18 04:10 36.6 C 65 15 137/81 95
[2018-12-18] MEDS ORDERED: IRON SUCROSE 200 MG in 0.9 % SODIUM CHLORIDE 100 ML IV ONE (13:30)
[2018-12-18] MEDS: ROSUVASTATIN CALCIUM 20 MG TAB PO SCH (21:36)
[2018-12-18] MEDS: LOSARTAN POTASSIUM 25 MG TAB PO SCH (21:36)
[2018-12-18] MEDS: CITALOPRAM 40 MG TAB PO SCH (21:36)
[2018-12-19 05:42] LABS: Hematocrit (blood only) 32.3 % (42-52); Hemoglobin 9.9 g/dL (14.0-18.0); Mean Corpuscular Hemoglobin 21.8 pg (25-34); Mean Corpuscular Hgb Conc 30.7 g/dL (32-36); Mean Platelet Volume 9.7 fL (7.4-10.4); Platelet Count 321 K/uL (130-400); RDW Coefficient of Variation 17.6 % (11.5-14.5); RDW Standard Deviation 45.3 fL (36.4-46.3); Red Blood Count 4.55 M/uL (4.7-6.1); White Blood Count 9.99 K/uL (4.8-10.8)
[2018-12-19] MEDS ORDERED: BUTALBITAL/ACETAMIN/CAFFEINE TAB PO PRN (08:41)
[2018-12-19] MEDS ORDERED: IRON SUCROSE 300 MG in SODIUM CHLORIDE 0.9% 250 ML IV SCH (09:00)
[2018-12-19] MEDS: PANTOprazole 40 MG TAB PO SCH (10:30)
[2018-12-19] MEDS: TAMSULOSIN HCL 0.4 MG CAP PO SCH (10:30)
[2018-12-19] MEDS: FERROUS SULFATE 325 MG TAB PO SCH (10:30)
--- NOTE | 2018-12-19 13:45 | Discharge Summary ---
Date of Service December 19, 2018 Admission HPI Per Admitting Provider This is a 38-year-old male with a PMH of hypertension, hyperlipidemia, mood disorder and recent kidney stone who presents with abnormal lab work from PCPs office. Was evaluated at [facility] in [place] 2 days ago for right flank pain and found to have 2 mm renal calculus. Noted at the time to have a hemoglobin of 8 on the lab work as well as a low MCV. Was discharged on Flomax and ferrous sulfate for microcytic anemia and set up for PCP follow-up the following day. Clinic lab work performed yesterday showed hemoglobin of 7.1 with low ferritin and serum iron as well as high TIBC and reticulocyte % of 2 .11. Was sent to ED for further evaluation. Patient endorses progressively worsening symptomatic anemia for the past 6 months. CBC from February 2018 with hemoglobin of 13.5 and normocytic MCV. Has become lightheaded with blurry vision with any type of exertion. Also endorses dyspnea when moving around. 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 History of normal stress echo in September 2018. has noted that he is looked paler for the past few weeks. No fever, chills, headache, night sweats, unintentional weight loss, cough, palpitations, nausea, abdominal pain, dysuria, diarrhea or constipation. Denies any hematemesis, melena or hematochezia. Bowel movements normal color and caliber. Denies tobacco use. Uses naproxen 4-5x/week for knee pain. Of note, patient passed kidney stone this morning. No longer experiencing flank pain. Denies hematuria. In ED, patient found to be afebrile and hemodynamically stable. No leukocytosis. Hemoglobin 7.6. MCV 69.6. Hemoccult positive. Consented and type and cross for 2 units PRBCs with first unit infusing now. Principal Diagnosis ANEMIA, GASTRIC ULCER DISEASE Discharge Exam GENERAL: No sign of distress, HEENT: Sclera nonicteric, pink-purple bilateral equal reactive to light extraocular muscle intact Normal oral mucosa, neck: No JVD, no thyromegaly, trachea midline Lungs: Clear to auscultate, no wheeze or rales Cardiovascular: Regular S1 and S2, no murmur or gallop, no JVD, no lower extremity edema Abdomen: Soft, nontender, bowel sounds active, no hepatosplenomegaly Extremities: No rash or deformity, normal joint, Neuro: No focal neurological deficit, no dysarthria, no facial droop Psych: Alert awake oriented x3: Euthymic Skin: No rash LYMPH NODES: No cervical lymphadenopathy Discharge Data Allergies Allergy/AdvReac Type Severity Reaction Status Date / Time epinephrine AdvReac Severe vomiting, Verified 12/17/18 15:03 dizzy, high heart rate lidocaine AdvReac Severe vomiting, Verified 12/17/18 15:03 dizzy, high heart rate Consultations 12/17/18 13:03 ED Decision to Admit Stat 12/17/18 14:40 Consult Gastroenterology Routine Procedures Performed Operation Date: 12/17/18 09:30 Actual Procedures p EGD Biopsy Cytology - [facility] Course (1) GI bleed: This is a 38-year-old male with a PMH of hypertension, hyperlipidemia, mood disorder and recent kidney stone who presents with symptomatic anemia and was found to have GI bleed. -presented with Hgb of 7.6 with MCV 69.6, + Hemoccult positive -No abdominal pain, melena or hematochezia reports of NSAID use : frequent Naproxen use (4-5x/week). No prior history of GI bleed -s/p 2 units PRBCs transfusion HB improved to 9.9 with markedly improvement of symptoms -reports of feeling less tired, no complaint of dizzy spell or lightheadedness, no dyspnea on exertion - appreciate input form [facility] GI Status post EGD: 12/17/18 Impression: Normal upper third of the esophagus and middle third of the esophagus. Large hiatal hernia with Robinson's erosions Nonobstructing nonbleeding gastric ulcer with no stigmata of bleeding-possible secondary to NSAID use? pt reports of taking naproxen 2 to 3 tablets occasionally for knee pain has been using NSAIDs for a number of years GI comments: Prilosec (omeprazole) 40 mg daily Repeat endoscopy in 3 months for surveillance. Ferrous sulfate at 325 mg twice daily for 6 weeks Repeat lab with H&H in 2 weeks Outpatient colonoscopy scheduled next week on 12/22/2018 Patient should avoid NSAIDs Patient given IV Venofer transfusion Stable to be discharged home today, outpatient follow-up with lab, Colonoscopy scheduled for early next week (2) Symptomatic anemia: Has been progressively symptomatic for the past 6 months, endorsing lightheadedness, visual changes, SOB and chest pain with exertion due to GI bleed( upper ) with evidence of gastric ulcer noted in EGD -presented with Hgb of 7.6 with microcytic MCV of 69.6. Retic % of 2.11. Serum iron, ferritin low. Elevated TIBC - s/p 2 units of PRBC transfusion Hemoglobin improved to 9.9 This post IV iron/Venofer transfusion EGD finding and GI recommendation as outlined above She is stable to be discharged home today (3) History of kidney stones: Recently diagnosed with obstructing 2mm R renal stone at [facility] in [place] - apparently passed the stone denies of any urinary symptom Flushing discontinued (4) Hypertension: BP stable on Loasartan (5) Hyperlipidemia: Continue statin (6) Mood disorder: Continue citalopram DVT Ppx: Pharmacologic VTE contraindicated 2/2 GI bleed. low risk , pt is encouraged to ambulate PCP: Kevin Dispo: Stable to be discharged home Total Time Total Time Spent Total Time Spent (In Minutes): Approximately 40 minutes Total Time Includes: Examination of the Patient, Discharge Planning and Medic ation Reconciliation Discharge Plan Discharge Items Patient Disposition: Home - Self-Care Reason For Visit: SYMPTOMATIC ANEMIA,GI BLEED Discharge Diagnosis: ANEMIA, GASTRIC ULCER DISEASE, Activity: Resume your previous activity Non-emergency contact: Primary Care Provider Call non-emergency contact if: you have any medication questions Follow-up/Referrals: Evelyne Baptiste [Physician] - Adolfo Brown MD [Primary Care Provider] - Diet: Regular Ambulatory Orders: Complete Blood Count no Diff (Routine) Timeframe: 1 Week Location: Determined by Patient Ordered By: Jacqueline Francisco Attending Provider Instructions: Continue to take iron supplement, DO NOT TAKE ALEVE, ADVIL, NAPROXEN, IBUPROFEN ASPIRIN-THESE ARE THE GROUP OF DRUGS BELONGING TO NSAID-WHICH CAUSES SEVERE STOMACH IRRITATION, ULCER, BLEEDING Stomach endoscopy finding: Showed evidence of ulcer in your stomach lining possibly causing by [id number] pain medications: Naproxen DO NOT TAKE EXCEDRIN: CONTAINS ASPIRIN Can take Tylenol as needed for headache Please ask pharmacy if you have any confusion regarding component of [id number] pain medications NEW MEDICATION: Prilosec/omeprazole 40 mg daily: Take 1 tablet daily in empty stomach: for gastric ulcer noted in endoscopy You are scheduled for colonoscopy in [facility] gastroenterology in [facility] on Thursday12/21/2018 GI office will call you prior to the procedure for colonoscopy prep You will need repeat upper endoscopy/EGD in 3 months [facility] GI clinic will schedule you with appointment Hospital follow-up with your family physician Dr. coppola in 1 week Addtl Change Management Facilitator Provider Instructions: GASTROENTEROLOGY RECOMMENDATION: 1. Prilosec/omeprazole 40 mg daily 2. Repeat upper endoscopy in 3 months for surveillance Pending Studies at Discharge: Yes Studies:: Colonoscopy: Scheduled on 12/22/2018 at [facility] Repeat upper endoscopy/EGD in 3 months Lab work: Complete blood count in 1 week Stand-Alone Forms: [facility] [employer], Opioid Pain Management, Work/School Release (Inpt) Medications and DC Order Prescriptions: New omeprazole 40 mg capsule,delayed release(DR/EC) 40 mg PO DAILY 30 Days Qty: 30 RF: 3 [id number]-[id number]-[id number] 50-325-40 mg capsule 1 cap PO Q6H PRN (Reason: pain) Qty: 60 RF: 0 Continued citalopram 40 mg tablet 40 mg PO HS RF: 0 tramadol 50 mg tablet 50 mg PO QAM PRN (Reason: Pain) RF: 0 losartan 25 mg tablet 25 mg PO HS RF: 0 rosuvastatin 40 mg tablet 20 mg PO HS RF: 0 ferrous sulfate 325 mg (65 mg iron) Tablet 325 mg PO DAILY RF: 0 Discontinued tamsulosin 0.4 mg capsule 0.4 mg PO QAM RF: 0 tamsulosin [Flomax] 0.4 mg Capsule 0.4 mg PO DAILY RF: 0 Discharge Orders: Discharge Order (Routine); Ordered 12/19/18 Ordered By: Jacqueline Mix/Other Patient Handouts: DVT Prevent Admission Data Admit Date/Time: 12/17/18 15:06 Attending Provider: Jacqueline Londono Admit Provider: Marcus Hunt Primary Care Provider: Adolfo Brown Other Providers: Marcus Hunt ; Evelyne Baptiste Other Interventions: Discharge Summary Assessment (RN) Last Done: 12/19/18 12:09
== END 2018-12-19 14:19 | disposition home or self-care (01) | DRG 379 ==
LOC: ED 10:36 → ENDO 15:05 → SUATTDRO 15:06 → 2E 15:06 → 3N 12-18 15:23
DX: K25.4 Chronic or unspecified gastric ulcer with hemorrhage; Z79.899 Other long term (current) drug therapy; K44.9 Diaphragmatic hernia without obstruction or gangrene; D64.9 Anemia, unspecified; Z87.442 Personal history of urinary calculi; F39 Unspecified mood [affective] disorder; I10 Essential (primary) hypertension; E78.5 Hyperlipidemia, unspecified